=== PATIENT | male | born 1985 | race Asian ===

== ENCOUNTER 2018-08-22 21:52 | Emergency (ER) | payer MEDICAID ==
[~2018-08-22] VITALS: Ht 172.7 cm; Wt 100.0 kg
[2018-08-22 22:35] VITALS: BP 155/87
== END 2018-08-22 22:39 | disposition home or self-care (01) ==
LOC: EMS 21:54
DX: L02.32 Furuncle of buttock (principal); F12.90 Cannabis use, unspecified, uncomplicated